=== PATIENT | female | born 1975 | race Caucasian/White ===

== ENCOUNTER 2019-07-21 07:25 | Outpatient (CLI) | payer OTHER, SELFPAY ==
--- NOTE | ~2019-07-21 | MM_ITS ---
EXAMINATION: MM screening yrn BI w jhon HISTORY: Screening mammogram TECHNIQUE: Craniocaudal and mediolateral oblique 3-D tomosynthesis images were obtained and synthetic 2-D images were generated. CAD analysis was submitted and interpreted. COMPARISON: 07/09/2018 diagnostic left digital mammogram To, 07/05/2017, 07/02/2016 bilateral digital screening mammogram examinations BREAST PARENCHYMAL COMPOSITION: There are scattered areas of fibroglandular density. FINDINGS: 3 mm and 6 lumbar circumscribed opacities in the upper outer quadrant of left breast, likel y benign intramammary lymph nodes. There is no evidence of suspicious mass, calcification, or archite ctural distortion to suggest malignancy in either breast. There has been no suspicious interval ellis e. IMPRESSION: 1. No mammographic evidence of malignancy. 2. Recommend routine screening mammography in one year. BI-RADS Category 2: Benign finding(s). Reviewed, dictated and finalized at location A. 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
== END 2019-07-21 07:26 | disposition home or self-care (01) ==
LOC: ANHIMG 07:27
PROVIDERS: PCP Obstetrics & Gynecology; Visit Provider Obstetrics & Gynecology
DX: Z12.31 Encounter for screening mammogram for malignant neoplasm of breast (principal)
CPT/HCPCS: 77063; 77067

== ENCOUNTER 2020-01-01 06:53 | Outpatient (CLI) | payer OTHER, SELFPAY ==
--- NOTE | ~2020-01-01 | US_ITS ---
EXAMINATION: US thyroid DATE: 01/01/2020 07:34 INDICATION: Nontoxic single thyroid nodule. TECHNIQUE: Multiple ultrasound images of the thyroid were obtained. COMPARISON: Thyroid ultrasound 01/06/2019, 05/23/2015 FINDINGS: The right thyroid lobe measures 3.6 x 2.0 x 1.5 cm. The left thyroid lobe measures 3.4 x 1.6 x 1.5 c m. In the left thyroid lobe, there is a 3 mm nodule. IMPRESSION: 1. Stable small thyroid nodule, likely not clinically significant. No follow-up is needed. Reviewed, dictated and finalized at location B.
--- NOTE | ~2020-01-01 | CT_ITS ---
EXAMINATION: CT sinus wo con DATE: 01/01/2020 07:24 INDICATION: Chronic congestion. Chronic sinusitis. TECHNIQUE: Computed tomography (CT) of the paranasal sinuses was performed without contrast. Iterativ e reconstruction technique was employed. Exam dose: 271.75 mGy-cm total exam DLP. COMPARISON: 05/29/2011 CT sinuses FINDINGS: There is minimal rightward bowing of the nasal septum. There is intralamellar cell of the right middle nasal turbinate and bilateral middle nasal turbinate serafin bullosa. The intravenous turbinates are moderately prominent in size, symmetric. The ostiomeatal units are patent. There is no mucoperiosteal thickening, air-fluid level, soft tissue opacity other significant abnorma lity of the paranasal sinuses. The mastoid air cells are normally developed and aerated. The left frontal sinus is very small. The right frontal sinus is not developed. IMPRESSION: Minimal rightward bowing of nasal septum Interlamellar cell of right middle nasal turbinate and bilateral middle nasal turbinate serafin bullos a Normal ostiomeatal units No evidence of sinusitis Mastoid air cells are normal Reviewed, dictated and finalized at Location A. Reviewed, dictated and finalized at location A. IMPRESSION: Minimal rightward bowing of nasal septum Interlamellar cell of right middle nasal turbinate and bilateral middle nasal t urbinate serafin bullosa Normal ostiomeatal units No evidence of sinusitis Mastoid air cells are normal
== END 2020-01-01 06:54 | disposition home or self-care (01) ==
PROVIDERS: PCP Internal Medicine; Visit Provider Otolaryngology
DX: J32.9 Chronic sinusitis, unspecified (principal); J34.2 Deviated nasal septum; E04.1 Nontoxic single thyroid nodule
CPT/HCPCS: 70486; 76536

== ENCOUNTER 2020-06-24 02:02 | Day surgery (SDC) | payer OTHER, SELFPAY ==
[2020-06-16 12:26] VITALS: BMI 29.9
[2020-06-24] MEDS: LACTATED RINGERS 1,000 ML 150 ML IV CONT (09:35)
[2020-06-24 09:37] VITALS: BP 110/73; PULSE 70; RESP 16; TEMP 36.1; O2SAT 100
--- NOTE | 2020-06-24 09:46 | WPDANESEPPF ---
Anes - Initial Pre Proc Eval Procedure: Operation Date: 06/24/20 10:30 Proposed Procedures p Esophagogastroduodenoscopy - Nish Dockery MD Date/Time: 06/24/20 09:46 Surgeon: Nish Dockery MD Pre Op Diagnosis: Laryngopharyngeal Reflux Patient Data Age: 44 Gender: F Height: 5 ft 6 in Weight: 84.5 kg Last Vital Signs Temp 97 F L 06/24/20 09:37 Pulse 70 06/24/20 09:37 Resp 16 06/24/20 09:37 BP 110/73 06/24/20 09:37 Pulse Ox 100 06/24/20 09:37 Allergies Allergy/AdvReac Type Severity Reaction Status Date / Time cephalexin Allergy Intermediate Rash Verified 06/24/20 09:36 bacitracin Allergy Unknown Rash Verified 06/24/20 09:36 lidocaine Allergy Unknown Rash Verified 06/24/20 09:36 neomycin Allergy Unknown IRRITATION Verified 06/24/20 09:36 methylisothiazolinone Allergy Swelling Verified 06/24/20 09:36 Home Medications Medication Instructions Recorded Confirmed Type azelastine 137 mcg (0.1 %) nasal 137 mcg NASAL Q12H 12/30/19 06/16/20 History spray aerosol cetirizine 10 mg tablet 10 mg PO DAILY 12/30/19 06/16/20 History montelukast 10 mg tablet 10 mg PO DAILY 12/30/19 06/16/20 History omeprazole 40 mg PO DAILY 06/16/20 06/16/20 History Patient hx anesthesia problems: none Family hx anesthesia problems: none PMFSH Past Medical History Medical History (Updated 12/30/19 @ 07:30 by Vaibhav Becerril APRN) Dyslipidemia Eczema H/O René thyroiditis Irregular periods Muscle fatigue Restless legs syndrome Thyroid nodule Surgical History Surgical History History of tubal ligation [place] teeth extracted Family History Family History Mother Family history of malignant neoplasm of breast in first degree relative Other Cerebrovascular accident Diabetes mellitus Family history of arthritis Family history of cardiovascular disease Family history of chronic obstructive pulmonary disease Family history of congestive heart failure Family history of glaucoma Family history of hearing loss Family history of heart disease in male family member before age 55 Family history of malignant neoplasm Family history of osteoporosis Hypertension Social History Social History Smoking status: Never smoker Alcohol intake: never Substance use: current Substance use type: does not use Living arrangements: with family Spiritual care concerns: No Anes - Eval Final PreProcedure Day of Procedure 06/24/20 09:46 Patient weight: overweight Heart: regular rate and rhythm Lungs: clear to auscultation Airway: Mallampati scale class II Neurological: alert and oriented Last oral intake: >/= 8 hours ASA classification: II Emergent: no Anesthetic plan: proceed Anesthesia type and monitoring: general GIVS and standard monitoring Informed Consent: The patient's anesthetic plan and its attendant risks and benefits were discussed with the patient/family/POA. Questions were solicited and answers provided to the satisfaction of the patient/family/POA.
--- NOTE | 2020-06-24 09:51 | WPDGICN ---
Assessment and Plan Assessment and plan (1) Sinusitis: Code(s): J32.9 - Chronic sinusitis, unspecified Status: Acute (2) Cough: Code(s): R05 - Cough Status: Acute Assessment and Plan: Patient presents with chronic cough. She has been found to have sinusitis. Question has been raised that this could represent laryngeal pharyngeal reflux. However patient has no heartburn and has had a poor response to a 2 month trial of omeprazole 40 mg p.o. daily. Plan is for EGD to assess for any signs of acid reflux. Alternatively if this is -24 hour esophageal pH testing while not taking acid suppression may also help exclude or confirm acid reflux disease. Further recommendations may be given after endoscopy. GI Consult Note Consult date/time: 06/24/20 09:51 HPI: Jessica Zaman is a 44 year old female Presents to try to exclude acid reflux disease. Patient gives a long history of for many years of sinus problems. She has had sinus drainage. She complains of a cough. She complains of change in her voice. She initially saw an digester hand with no improvement. Recently saw ENT service to 5 identified pharyngitis. It was felt she may have laryngeal pharyngeal reflux. Patient has been treated with omeprazole 40 mg p.o. daily for more than 2 months with no change in symptoms. Patient denies any heartburn. She denies any dysphagia. She denies any bleeding. Weight appetite bowel movements all have been normal. Her family history is noncontributory. Today she presents for an EGD to assess for any possible evidence for acid reflux disease. Review of Systems Review of Systems: All systems reviewed & are unremarkable except as noted in HPI and below [facility] Past Medical History Medical History (Updated 06/24/20 @ 09:54 by Nish Dockery MD) Dyslipidemia Eczema H/O René thyroiditis Irregular periods Muscle fatigue Restless legs syndrome Thyroid nodule Surgical History Surgical History History of tubal ligation [place] teeth extracted Family History Family History Mother Family history of malignant neoplasm of breast in first degree relative Other Cerebrovascular accident Diabetes mellitus Family history of arthritis Family history of cardiovascular disease Family history of chronic obstructive pulmonary disease Family history of congestive heart failure Family history of glaucoma Family history of hearing loss Family history of heart disease in male family member before age 55 Family history of malignant neoplasm Family history of osteoporosis Hypertension Social History Social History Smoking status: Never smoker Alcohol intake: never Substance use: current Substance use type: does not use Living arrangements: with family Spiritual care concerns: No Meds Home Medications and Allergies Home Medications Medication Instructions Recorded Confirmed Type azelastine 137 mcg (0.1 %) nasal 137 mcg NASAL Q12H 12/30/19 06/16/20 History spray aerosol cetirizine 10 mg tablet 10 mg PO DAILY 12/30/19 06/16/20 History montelukast 10 mg tablet 10 mg PO DAILY 12/30/19 06/16/20 History omeprazole 40 mg PO DAILY 06/16/20 06/16/20 History Allergies Allergy/AdvReac Type Severity Reaction Status Date / Time cephalexin Allergy Intermediate Rash Verified 06/24/20 09:36 bacitracin Allergy Unknown Rash Verified 06/24/20 09:36 lidocaine Allergy Unknown Rash Verified 06/24/20 09:36 neomycin Allergy Unknown IRRITATION Verified 06/24/20 09:36 methylisothiazolinone Allergy Swelling Verified 06/24/20 09:36 Vital Signs Vital Signs - 24 hr 06/24/20 09:37 Temperature 97 F L Pulse Rate 70 Respiratory Rate 16 Blood Pressure 110/73 Pulse Oximetry 100 Exam Narrative: Exam Narrative: Physi
[2020-06-24 10:15] VITALS: BP 117/77; PULSE 70; RESP 22; O2SAT 100
[2020-06-24 10:25] VITALS: BP 115/69; PULSE 67; RESP 18; O2SAT 100
[2020-06-24 10:35] VITALS: BP 114/67; PULSE 65; RESP 16; O2SAT 100
== END 2020-06-24 10:51 | disposition home or self-care (01) ==
PROVIDERS: Family Provider Obstetrics & Gynecology; PCP Internal Medicine; Referring Provider Otolaryngology; Visit Provider Internal Medicine Gastroenterology
PROC: 0DJ08ZZ Inspection of Upper Intestinal Tract, Via Natural or Artificial Opening Endoscopic (ICD-10-PCS; CPT 43235; principal; 2020-06-24 10:30)
DX: R05 Cough (principal); J32.9 Chronic sinusitis, unspecified; E78.5 Hyperlipidemia, unspecified; G25.81 Restless legs syndrome
CPT/HCPCS: 43239; 87081; J2704; J7120

== ENCOUNTER 2020-07-26 07:14 | Outpatient (CLI) | payer OTHER, SELFPAY ==
--- NOTE | ~2020-07-26 | MM_ITS ---
EXAMINATION: MM screening yrn BI w jhon HISTORY: Screening mammogram TECHNIQUE: Craniocaudal and mediolateral oblique 3-D tomosynthesis images were obtained and synthetic 2-D images were generated. CAD analysis was submitted and interpreted. COMPARISON: 08/07/2019 bilateral digital screening mammogram 07/17/2018 diagnostic left digital mammogram 07/08/2018, 07/05/2017, 07/02/2016 bilateral digital screening mammogram examinations BREAST PARENCHYMAL COMPOSITION: There are scattered areas of fibroglandular density. FINDINGS: There is no evidence of suspicious mass, calcification, or architectural distortion to sugg est malignancy in either breast. There has been no suspicious interval change. IMPRESSION: 1. No mammographic evidence of malignancy. 2. Recommend routine screening mammography in one year. BI-RADS Category 1: Negative Reviewed, dictated and finalized at location A. 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
== END 2020-07-26 07:15 | disposition home or self-care (01) ==
LOC: ANHIMG 07:16
PROVIDERS: PCP Internal Medicine; Visit Provider Obstetrics & Gynecology
DX: Z12.31 Encounter for screening mammogram for malignant neoplasm of breast (principal)
CPT/HCPCS: 77063; 77067

== ENCOUNTER 2020-12-13 07:26 | Outpatient (CLI) | payer OTHER, SELFPAY ==
--- NOTE | ~2020-12-13 | MR_ITS ---
EXAMINATION: MR femur LT wo con DATE: 12/13/2020 09:41 INDICATION: Left leg pain TECHNIQUE: Magnetic resonance imaging (MRI) of the left femur/thigh was performed without intravenous contrast. Sequences included axial, sagittal and coronal T1-weighted FSE and fluid sensitive FSE STI R. The contralateral right thigh is included on the coronal images. COMPARISON: None. FINDINGS: There is a complete avulsion and 3 cm distal retraction of the biceps femoris tendon from the left is chial tuberosity origin. There is both feathery intramuscular as well as epimysial edema along the pr oximal 20 cm of the semitendinosus muscle belly with combination of partial avulsion of the anterior footplate at the ischial tuberosity as well as an additional partial tear extending more distally vamsi ng the myotendinous junction involving the more posterior portion of the muscle belly. Mild tendinopa thy without discrete tear at the left ischial tuberosity origin of the semimembranosus tendon. Remain lexie of the musculature in the left thigh appears normal in bulk and signal and symmetric with the con tralateral right thigh. Bilateral hip joint spaces appear normal with no joint effusions. Normal bone marrow signal throughout. No left knee joint effusion. The uterus is not identified and has likely b een surgically resected. Bladder is normal. No evident bilateral inguinal or lower pelvic lymphadenop athy. IMPRESSION: 1. Proximal hamstring tendon injury with complete left ischial tuberosity avulsion of the proximal bi ceps femoris tendon and partial avulsion of the proximal semitendinosus with more distal partial tear along the proximal myotendinous junction. Reviewed, dictated and finalized at location A. IMPRESSION: 1. Proximal hamstring tendon injury with complete left ischial tuberosity avuls ion of the proximal biceps femoris tendon and partial avulsion of the proximal semitendinosus with more distal partial tear along the proximal myotendinous ju nction.
== END 2020-12-13 07:27 | disposition home or self-care (01) ==
LOC: ANHIMG 07:32
PROVIDERS: PCP Internal Medicine; Visit Provider Nurse Practitioner
DX: M79.605 Pain in left leg (principal)
CPT/HCPCS: 73721

== ENCOUNTER 2021-05-08 09:24 | Outpatient (CLI) | payer OTHER, SELFPAY ==
--- NOTE | ~2021-05-08 | XR_ITS ---
XR knee RT min 4V 05/08/2021 09:44 Indication: Right knee pain Procedure: 5 views right knee Comparison: 10/25/2017 Findings: No fracture, subluxation or dislocation. There is patellofemoral compartment osteoarthritis , most prominent in the lateral facet. No significant joint effusion. No focal soft tissue abnormalit y. No foreign bodies. Impression: 1: Patellofemoral compartment osteoarthritis. Reviewed, dictated and finalized at location A. 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
== END 2021-05-08 09:25 | disposition home or self-care (01) ==
LOC: CHSIMG 09:26
PROVIDERS: PCP Internal Medicine; Visit Provider Orthopaedic Surgery
DX: M25.561 Pain in right knee (principal)
CPT/HCPCS: 73564

== ENCOUNTER 2021-06-13 00:19 | Day surgery (SDC) | payer OTHER, SELFPAY ==
[2021-05-31 15:03] VITALS: BMI 31.4
[2021-06-13 06:33] VITALS: BP 128/86; PULSE 81; RESP 18; TEMP 36.1; O2SAT 99
[2021-06-13] MEDS: LACTATED RINGERS 1,000 ML 150 ML IV CONT (06:47)
--- NOTE | 2021-06-13 07:51 | WPDANESEPPF ---
Anes - Initial Pre Proc Eval Procedure: Operation Date: 06/13/21 08:00 Proposed Procedures p Screening Colonoscopy - Tahir Marrero MD Date/Time: 06/13/21 07:51 Surgeon: Tahir Marrero MD Pre Op Diagnosis: neoplasm screening Patient Data Age: 45 Gender: F Height: 1.68 m Weight: 87.9 kg Last Vital Signs Temp 97.0 F L 06/13/21 06:33 Pulse 81 06/13/21 06:33 Resp 18 06/13/21 06:33 BP 128/86 06/13/21 06:33 Pulse Ox 99 06/13/21 06:33 Allergies Allergy/AdvReac Type Severity Reaction Status Date / Time cephalexin Allergy Intermediate Rash Verified 06/13/21 06:31 methylisothiazolinone Allergy Intermediate Swelling Verified 06/13/21 06:31 bacitracin Allergy Unknown Rash Verified 06/13/21 06:31 lidocaine Allergy Unknown Rash Verified 06/13/21 06:31 neomycin Allergy Unknown IRRITATION Verified 06/13/21 06:31 Home Medications Medication Instructions Recorded Confirmed Type azelastine 137 mcg (0.1 %) nasal 137 mcg NASAL Q12H 12/30/19 06/13/21 History spray aerosol cetirizine 10 mg tablet 10 mg PO DAILY 12/30/19 06/13/21 History diclofenac sodium 100 mg 100 mg PO DAILY #60 tablet 12/08/20 06/13/21 Rx tablet,extended release 24 hr Patient hx anesthesia problems: none Family hx anesthesia problems: none Results Review: All pre-operative results and documents have been reviewed as part of the pre-operative evaluation. [facility] Past Medical History Medical History (Updated 05/08/21 @ 11:44 by Guilherme Rosado MD) Arthritis Chondromalacia of right patellofemoral joint Degenerative arthritis of knee, bilateral Dyslipidemia Eczema H/O René thyroiditis Irregular periods Left proximal hamstring tendon rupture Light headedness Muscle fatigue Patellofemoral arthralgia of both knees Plantar fasciitis Restless legs syndrome Thyroid nodule Vision changes Surgical History Surgical History History of tubal ligation [place] teeth extracted Family History Family History Mother Family history of malignant neoplasm of breast in first degree relative Other Cerebrovascular accident Diabetes mellitus Family history of arthritis Family history of cardiovascular disease Family history of chronic obstructive pulmonary disease Family history of congestive heart failure Family history of glaucoma Family history of hearing loss Family history of heart disease in male family member before age 55 Family history of malignant neoplasm Family history of osteoporosis Hypertension Social History Social History Alcohol intake: never Alcohol use details: socially/occasionally Substance use: current Substance use type: does not use Living arrangements: with family Spiritual care concerns: No Anes - Eval Final PreProcedure Day of Procedure 06/13/21 07:51 Patient weight: obese Heart: regular rate and rhythm Lungs: clear to auscultation Airway: Mallampati scale class II Neurological: alert and oriented Last oral intake: >/= 8 hours ASA classification: II Emergent: no Anesthetic plan: proceed Anesthesia type and monitoring: general GIVS and standard monitoring Results Review: All pre-operative results and documents have been reviewed as part of the pre-operative evaluation. Informed Consent: The patient's anesthetic plan and its attendant risks and benefits were discussed with the patient/family/POA. Questions were solicited and answers provided to the satisfaction of the patient/family/POA.
--- NOTE | 2021-06-13 07:53 | PM.HPGS ---
History of Present Illness History of Present Illness Consent: Risks, benefits, and alternatives have been discussed and questions answered. Patient agrees to proceed with procedure. Chief complaint: neoplasm screening Narrative: Jessica Zaman is a 45 year old female here for first screening colonoscopy Review of Systems Constitutional: Constitutional: Denies headache(s) and Denies weakness Eyes: Eyes: Denies blurry vision ENT: Reports Normal hearing present, Denies headache(s) and Denies neck pain Cardiovascular: Cardiovascular: Denies chest pain and Denies dyspnea Respiratory: Respiratory: Denies dyspnea Gastrointestinal: Gastrointestinal: Reports no additional gastrointestinal complaints Genitourinary: Genitourinary: Denies dysuria Musculoskeletal: Musculoskeletal: Denies neck pain Integumentary/Breasts: Skin/Breast: Denies dry skin Neurologic: Reports Normal hearing present, Denies headache(s) and Denies weakness Psychiatric: Psychiatric: Denies anxiety Endocrine: Endocrine: Denies change in body appearance Hematologic/Lymphatic: Hematologic/Lymphatic: Denies easy bleeding Allergic/Immunologic: Allergic/Immunologic: Denies urticaria PMFSH Past Medical History Medical History (Updated 05/08/21 @ 11:44 by Guilherme Rosado MD) Arthritis Chondromalacia of right patellofemoral joint Degenerative arthritis of knee, bilateral Dyslipidemia Eczema H/O René thyroiditis Irregular periods Left proximal hamstring tendon rupture Light headedness Muscle fatigue Patellofemoral arthralgia of both knees Plantar fasciitis Restless legs syndrome Thyroid nodule Vision changes Surgical History Surgical History History of tubal ligation [place] teeth extracted Family History Family History Mother Family history of malignant neoplasm of breast in first degree relative Other Cerebrovascular accident Diabetes mellitus Family history of arthritis Family history of cardiovascular disease Family history of chronic obstructive pulmonary disease Family history of congestive heart failure Family history of glaucoma Family history of hearing loss Family history of heart disease in male family member before age 55 Family history of malignant neoplasm Family history of osteoporosis Hypertension Social History Social History Alcohol intake: never Alcohol use details: socially/occasionally Substance use: current Substance use type: does not use Living arrangements: with family Spiritual care concerns: No Meds Home Medications and Allergies Home Medications Medication Instructions Recorded Confirmed Type azelastine 137 mcg (0.1 %) nasal 137 mcg NASAL Q12H 12/30/19 06/13/21 History spray aerosol cetirizine 10 mg tablet 10 mg PO DAILY 12/30/19 06/13/21 History diclofenac sodium 100 mg 100 mg PO DAILY #60 tablet 12/08/20 06/13/21 Rx tablet,extended release 24 hr Allergies Allergy/AdvReac Type Severity Reaction Status Date / Time cephalexin Allergy Intermediate Rash Verified 06/13/21 06:31 methylisothiazolinone Allergy Intermediate Swelling Verified 06/13/21 06:31 bacitracin Allergy Unknown Rash Verified 06/13/21 06:31 lidocaine Allergy Unknown Rash Verified 06/13/21 06:31 neomycin Allergy Unknown IRRITATION Verified 06/13/21 06:31 Vital Signs Vital Signs - 24 hr 06/13/21 06:33 Temperature 97.0 F L Pulse Rate 81 Respiratory Rate 18 Blood Pressure 128/86 Pulse Oximetry 99 Exam Const: General: comfortable and no acute distress HENMT: General nose exam: Normal nares present Eyes: General: appearance normal, both eyes and all related structures Neck: Neck: no JVD Resp: Auscultation: clear to auscultation bilaterally Cardio: Rate: regular rate Rhythm: regular rhythm GI: Inspe
--- NOTE | 2021-06-13 07:54 | WPDANESEPPF ---
Anes - Initial Pre Proc Eval Procedure: Operation Date: 06/13/21 08:00 Proposed Procedures p Screening Colonoscopy - Tahir Marrero MD Date/Time: 06/13/21 07:54 Surgeon: Tahir Marrero MD Pre Op Diagnosis: neoplasm screening Patient Data Age: 45 Gender: F Height: 1.68 m Weight: 87.9 kg Last Vital Signs Temp 97.0 F L 06/13/21 06:33 Pulse 81 06/13/21 06:33 Resp 18 06/13/21 06:33 BP 128/86 06/13/21 06:33 Pulse Ox 99 06/13/21 06:33 Allergies Allergy/AdvReac Type Severity Reaction Status Date / Time cephalexin Allergy Intermediate Rash Verified 06/13/21 06:31 methylisothiazolinone Allergy Intermediate Swelling Verified 06/13/21 06:31 bacitracin Allergy Unknown Rash Verified 06/13/21 06:31 lidocaine Allergy Unknown Rash Verified 06/13/21 06:31 neomycin Allergy Unknown IRRITATION Verified 06/13/21 06:31 Home Medications Medication Instructions Recorded Confirmed Type azelastine 137 mcg (0.1 %) nasal 137 mcg NASAL Q12H 12/30/19 06/13/21 History spray aerosol cetirizine 10 mg tablet 10 mg PO DAILY 12/30/19 06/13/21 History diclofenac sodium 100 mg 100 mg PO DAILY #60 tablet 12/08/20 06/13/21 Rx tablet,extended release 24 hr Patient hx anesthesia problems: none Family hx anesthesia problems: none Results Review: All pre-operative results and documents have been reviewed as part of the pre-operative evaluation. [facility] Past Medical History Medical History (Updated 05/08/21 @ 11:44 by Guilherme Rosado MD) Arthritis Chondromalacia of right patellofemoral joint Degenerative arthritis of knee, bilateral Dyslipidemia Eczema H/O René thyroiditis Irregular periods Left proximal hamstring tendon rupture Light headedness Muscle fatigue Patellofemoral arthralgia of both knees Plantar fasciitis Restless legs syndrome Thyroid nodule Vision changes Surgical History Surgical History History of tubal ligation [place] teeth extracted Family History Family History Mother Family history of malignant neoplasm of breast in first degree relative Other Cerebrovascular accident Diabetes mellitus Family history of arthritis Family history of cardiovascular disease Family history of chronic obstructive pulmonary disease Family history of congestive heart failure Family history of glaucoma Family history of hearing loss Family history of heart disease in male family member before age 55 Family history of malignant neoplasm Family history of osteoporosis Hypertension Social History Social History Alcohol intake: never Alcohol use details: socially/occasionally Substance use: current Substance use type: does not use Living arrangements: with family Spiritual care concerns: No Anes - Eval Final PreProcedure Day of Procedure 06/13/21 07:54 Patient weight: obese Heart: regular rate and rhythm Lungs: clear to auscultation Airway: Mallampati scale class II Neurological: alert and oriented Last oral intake: >/= 8 hours ASA classification: II Emergent: no Anesthetic plan: proceed Anesthesia type and monitoring: general GIVS and standard monitoring Results Review: All pre-operative results and documents have been reviewed as part of the pre-operative evaluation. Informed Consent: The patient's anesthetic plan and its attendant risks and benefits were discussed with the patient/family/POA. Questions were solicited and answers provided to the satisfaction of the patient/family/POA.
[2021-06-13 08:12] VITALS: BP 106/61; PULSE 73; RESP 21; O2SAT 96
[2021-06-13 08:22] VITALS: BP 116/73; PULSE 67; RESP 14; O2SAT 99
[2021-06-13 08:32] VITALS: BP 117/78; PULSE 63; RESP 11; O2SAT 99
== END 2021-06-13 08:41 | disposition home or self-care (01) ==
PROVIDERS: PCP Internal Medicine; Visit Provider Internal Medicine Gastroenterology
PROC: 0DJD8ZZ Inspection of Lower Intestinal Tract, Via Natural or Artificial Opening Endoscopic (ICD-10-PCS; CPT 45378; principal; 2021-06-13 08:00)
DX: Z12.11 Encounter for screening for malignant neoplasm of colon (principal); E66.9 Obesity, unspecified; Z68.31 Body mass index [BMI] 31.0-31.9, adult
CPT/HCPCS: 45378; J2704; J7120

== ENCOUNTER 2021-08-04 07:29 | Outpatient (CLI) | payer OTHER, SELFPAY ==
--- NOTE | ~2021-08-04 | MM_ITS ---
EXAMINATION: MM screening yrn BI w jhon HISTORY: Screening mammogram, family history of breast cancer in her mother. TECHNIQUE: Craniocaudal and mediolateral oblique 3-D tomosynthesis images were obtained and synthetic 2-D images were generated. CAD analysis was submitted and interpreted. COMPARISON: 07/26/2020, 07/21/2019, 07/17/2018 BREAST PARENCHYMAL COMPOSITION: There are scattered areas of fibroglandular density. FINDINGS: There is no suspicious mass, calcification, or architectural distortion to suggest malignan cy in either breast. There has been no suspicious interval change. IMPRESSION: 1. No mammographic evidence of malignancy. 2. Recommend routine screening mammography in one year. BI-RADS Category 1: Negative Reviewed, dictated and finalized at location A.
== END 2021-08-04 07:30 | disposition home or self-care (01) ==
LOC: ANHIMG 07:33
PROVIDERS: PCP Internal Medicine; Visit Provider Obstetrics & Gynecology
DX: Z12.31 Encounter for screening mammogram for malignant neoplasm of breast (principal)
CPT/HCPCS: 77063; 77067

== ENCOUNTER 2021-11-29 08:52 | Outpatient (CLI) | payer OTHER, SELFPAY ==
--- NOTE | 2021-11-29 09:12 | EST_ITS ---
Patient Info Name: Jessica Zaman Age: 45 years : 1975 Gender: Female Ht: 66 in Wt: 196 lbs BSA: 2.06 m2 HR: 64 bpm BP: 117 / 73 mmHg Heart Rhythm: Sinus Rhythm Technical Quality: Good Exam Date: 11/29/2021 9:27 AM Exam Location: [facility] Pulmonary Patient Status: Outpatient Admit Date: 11/29/2021 Staff Ordering Physician: George Mccain DO Inspector Multifocal Lens: Jesenia Hansen RDCS Attending Provider: DR. TEAGUE Referring Physician: Adán SAM; Exam Type: CA stress echo Study Info Indications - fatigue Treadmill exercise stress echocardiogram is performed. Summary 1. 1. Negative Chip exercise stress test for ischemic ST changes by ECG criteria. 2. 2. Good functional capacity, achieving 10 METs of workload. 3. 3. Appropriate HR response to exercise. 4. 4. Appropriate HR recovery at 1 minute post exercise. 5. 5. Negative stress echocardiogram for ischemia by wall motion analysis. 6. 6. Patient informed of the above results. Stress Echo Findings Left Ventricle Appropriate increase in LV endocardial thickening with systole. Appropriate augmentation of contractility with systole. No wall motion abnormality. Left Ventricle Normal LV systolic function, no wall motion abnormality. Protocol: Chip Stress ECG Details Stage: REST Duration (min): 1 min : 37 sec Speed (mph): 0.0 Grade (%): 0 HR (bpm): 70 SBP (mmHg): 117 DBP (mmHg): 73 METS: --- Stage: REST Duration (min): 12 min : 50 sec Speed (mph): 0.0 Grade (%): 0 HR (bpm): 70 SBP (mmHg): 117 DBP (mmHg): 73 METS: --- Stage: STAGE 1 Duration (min): 1 min : 0 sec Speed (mph): 1.7 Grade (%): 10 HR (bpm): 97 SBP (mmHg): 117 DBP (mmHg): 73 METS: --- Stage: STAGE 1 Duration (min): 2 min : 0 sec Speed (mph): 1.7 Grade (%): 10 HR (bpm): 106 SBP (mmHg): 117 DBP (mmHg): 73 METS: --- Stage: STAGE 1 Duration (min): 3 min : 0 sec Speed (mph): 1.7 Grade (%): 10 HR (bpm): 108 SBP (mmHg): 141 DBP (mmHg): 71 METS: --- Stage: STAGE 2 Duration (min): 1 min : 0 sec Speed (mph): 2.5 Grade (%): 12 HR (bpm): 122 SBP (mmHg): 141 DBP (mmHg): 71 METS: --- Stage: STAGE 2 Duration (min): 2 min : 0 sec Speed (mph): 2.5 Grade (%): 12 HR (bpm): 132 SBP (mmHg): 156 DBP (mmHg): 68 METS: --- Stage: STAGE 2 Duration (min): 3 min : 0 sec Speed (mph): 2.5 Grade (%): 12 HR (bpm): 135 SBP (mmHg): 156 DBP (mmHg): 68 METS: --- Stage: STAGE 3 Duration (min): 1 min : 0 sec Speed (mph): 3.4 Grade (%): 14 HR (bpm): 141 SBP (mmHg): 166 DBP (mmHg): 67 METS: --- Stage: STAGE 3 Duration (min): 2 min : 0 sec Speed (mph): 3.4 Grade (%): 14 HR (bpm): 145 SBP (mmHg): 166 DBP (mmHg): 67 METS: --- Stage: STAGE 3 Duration (min): 3 min : 0 sec Speed (mph): 3.4 Grade (%): 14 HR (
== END 2021-11-29 08:53 | disposition home or self-care (01) ==
PROVIDERS: PCP Internal Medicine; Visit Provider Internal Medicine
DX: R53.83 Other fatigue (principal)
CPT/HCPCS: 93351

== ENCOUNTER 2022-03-12 08:27 | Outpatient (CLI) | payer OTHER, SELFPAY ==
--- NOTE | ~2022-03-12 | XR_ITS ---
XR knee LT min 4V 03/12/2022 09:00 Indication: Left knee pain Procedure: 4 views left knee Comparison: 10/25/2017 Findings: Mild osteoarthritis of the left knee. No fracture or traumatic malalignment. No significant joint effusion. No foreign bodies. Impression: 1: Mild osteoarthritis of the left knee. Reviewed, dictated and finalized at location B. Impression: 1: Mild osteoarthritis of the left knee.
--- NOTE | ~2022-03-12 | XR_ITS ---
EXAMINATION: XR knee RT min 4V DATE: 03/12/2022 09:00 INDICATION: Right knee pain TECHNIQUE: Four views of the right knee were obtained. COMPARISON: 05/08/2021 FINDINGS: Alignment is normal. No fracture or osteochondral lesion. There is tricompartmental osteoar thritis, mild in the medial and lateral compartments and severe in the lateral patellofemoral compart ment. There is a small knee joint effusion. Soft tissues are unremarkable. IMPRESSION: 1. Severe patellofemoral compartment osteoarthritis without significant change. Small joint effusion. Reviewed, dictated and finalized at location A.
== END 2022-03-12 08:28 | disposition home or self-care (01) ==
PROVIDERS: PCP Internal Medicine; Visit Provider Orthopaedic Surgery
DX: M25.562 Pain in left knee (principal); M25.561 Pain in right knee
CPT/HCPCS: 73564

== ENCOUNTER 2022-08-02 09:50 | Outpatient (CLI) | payer OTHER, SELFPAY ==
--- NOTE | ~2022-08-02 | US_ITS ---
EXAMINATION: US thyroid DATE: 08/02/2022 11:02 INDICATION: Abnormal thyroid function studies TECHNIQUE: Multiple ultrasound images of the thyroid were obtained. COMPARISON: 01/01/2020 FINDINGS: The right thyroid lobe measures 3.4 x 1.7 x 1.5 cm. The left thyroid lobe measures 3.6 x 1.4 x 1.3 c m. 6 mm wide than tall mixed solid and cystic nodule with smooth margins, isoechoic solid component and without echogenic foci in the inferior left thyroid (TI-RADS 2, not suspicious, no FNA recommende d). There is normal echotexture, echogenicity and vascular flow throughout the thyroid gland. IMPRESSION: 1. 6 mm TI-RADS 2 left thyroid nodule which is of no clinical significance requiring no biopsy or fur ther follow-up. Reviewed, dictated and finalized at location L. IMPRESSION: 1. 6 mm TI-RADS 2 left thyroid nodule which is of no clinical significance requ iring no biopsy or further follow-up.
== END 2022-08-02 09:51 | disposition home or self-care (01) ==
PROVIDERS: PCP Internal Medicine; Visit Provider Internal Medicine
DX: R94.6 Abnormal results of thyroid function studies (principal)
CPT/HCPCS: 76536

== ENCOUNTER 2022-09-18 07:48 | Outpatient (CLI) | payer OTHER, SELFPAY ==
--- NOTE | ~2022-09-18 | MM_ITS ---
EXAMINATION: MM screening yrn BI w jhon HISTORY: Screening mammogram, family history of breast cancer in her mother. TECHNIQUE: Craniocaudal and mediolateral oblique 3-D tomosynthesis images were obtained and synthetic 2-D images were generated. CAD analysis was submitted and interpreted. COMPARISON: 08/04/2021, 07/26/2020, 07/21/2019 BREAST PARENCHYMAL COMPOSITION:There are scattered areas of fibroglandular density. FINDINGS: Stable biopsy clip in the right breast. Stable benign-appearing lymph nodes of the outer ri ght breast. No suspicious mass, calcification, or architectural distortion are identified in either b reast to suggest malignancy. There has been no suspicious interval change. IMPRESSION: No mammographic evidence of malignancy. Recommend routine screening mammography in one year. BI-RADS Category 2: Benign finding(s). Reviewed, dictated and finalized at location .
== END 2022-09-18 07:49 | disposition home or self-care (01) ==
PROVIDERS: PCP Internal Medicine; Visit Provider Obstetrics & Gynecology
DX: Z12.31 Encounter for screening mammogram for malignant neoplasm of breast (principal)
CPT/HCPCS: 77063; 77067

== ENCOUNTER → 2023-04-22 07:02 | Outpatient (CLI) | payer OTHER, SELFPAY ==
--- NOTE | ~2023-04-22 | MR_ITS ---
MRI of the right knee Clinical history: Pain Technique: Coronal proton density and proton density-weighted images, sagittal proton-density and T2 fat-sat images, and axial proton-density fat-saturated images were acquired. Findings: Anterior and posterior cruciate ligaments are intact. Medial collateral ligament and the la teral collateral ligament complex are intact. Popliteus tendon is intact. Medial and lateral menisci are intact, without evidence of tear. There is probable focal high-grade chondromalacia at the medial aspect of the medial tibial plateau, with subchondral cystic change in this region. There is moderate chondral malacia the central aspect of the lateral tibial plateau. There is diffuse high-grade chondromalacia on both sides the patellofe moral compartment. There is patellofemoral compartment narrowing, with mild tricompartmental osteophy te formation. Extensor mechanism is intact. There is minimal joint effusion. No Chase's cyst. Possible 6 mm intra-a rticular loose body posterior to the PCL (sagittal image 15). Impression: Advanced degenerative change of the patellofemoral compartment. Mild to moderate degenerative change of the medial lateral compartments, as detailed above. Possible 6 mm intra-articular loose body, as above. Reviewed, dictated and finalized at location . 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 Mild to moderat e degenerative change of the medial lateral compartments, as detailed above. Possible 6 mm intra-articular loose body, as above.
== END ==
PROVIDERS: PCP Family Medicine; Visit Provider Orthopaedic Surgery
DX: M17.11 Unilateral primary osteoarthritis, right knee (principal)
CPT/HCPCS: 73721

== ENCOUNTER 2023-05-06 07:27 | Outpatient (CLI) | payer OTHER, SELFPAY ==
--- NOTE | ~2023-05-06 | XR_ITS ---
Left Knee Technique: AP, lateral, and sunrise views were obtained. Clinical History: Pain Findings: No fracture or dislocation is seen. Osseous alignment is anatomic. Joint spaces are preserv ed without degenerative or erosive change. Soft tissues are unremarkable. No joint effusion is seen. Impression: Unremarkable left knee radiographs. Reviewed, dictated and finalized at location . 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
--- NOTE | ~2023-05-06 | XR_ITS ---
Right Knee Technique: AP, lateral, and sunrise views were obtained. Clinical History: Pain Findings: No fracture or dislocation is seen. Osseous alignment is anatomic. Joint spaces are preserv ed without degenerative or erosive change. Soft tissues are unremarkable. No joint effusion is seen. Impression: Unremarkable right knee radiographs. Reviewed, dictated and finalized at location . S SKIMMER Impression: Unremarkable right knee radiographs.
== END 2023-05-06 07:28 | disposition home or self-care (01) ==
LOC: CHSIMG 07:30
PROVIDERS: PCP Family Medicine; Visit Provider Orthopaedic Surgery
DX: M25.561 Pain in right knee (principal); M25.562 Pain in left knee
CPT/HCPCS: 73564

== ENCOUNTER 2023-09-13 15:49 | Emergency (ER) | payer OTHER, SELFPAY ==
--- NOTE | ~2023-09-13 | XR_ITS ---
EXAMINATION: XR sternum min 2V DATE: 09/13/2023 16:35 INDICATION: Left sternal pain after being hit with a softball TECHNIQUE: Oblique PA and lateral views of the sternum were obtained. COMPARISON: 12/28/2007 FINDINGS: No fractures identified. No evident presternal or retrosternal soft tissue swelling. Visualized porti on of the lungs are clear. No pleural effusion or pneumothorax. Heart size is normal. Mild thoracic s pondylosis. IMPRESSION: 1. No acute osseous abnormality. Reviewed, dictated and finalized at location A.
[2023-09-13 15:55] VITALS: BP 128/76; PULSE 69; RESP 16; TEMP 36.8; O2SAT 100
--- NOTE | 2023-09-13 16:24 | ED.GENADULT ---
HPI - General Adult General Chief complaint: Unspecified Stated complaint: CHEST INJURY Time Seen by Provider: 09/13/23 16:03 Source: patient and RN notes reviewed Mode of arrival: ambulatory Limitations: no limitations History of Present Illness HPI narrative: Patient presents today stating that she was struck in the left chest by softball last night after it was thrown in her direction. She denies pain with deep breath or coughing, but does report some pain with movement and pressure to the area. She currently rates her pain at rest 2/10, which increases to 4/10 with movement. She takes diclofenac for pain. Denies shortness of breath or any additional symptoms. Related Data Home Medications Medication Instructions Recorded Confirmed cetirizine 10 mg tablet (Zyrtec) 10 mg PO DAILY 12/30/19 08/13/23 dupilumab [Dupixent Pen] subcut PRN 07/17/23 08/13/23 ciclopirox 1 % shampoo 5 ml topical 2XW 08/13/23 08/13/23 fluocinonide 0.05 % topical 1 applic topical BID 08/13/23 08/13/23 solution multivitamin with minerals 1 tablet PO DAILY 08/13/23 08/13/23 (Hair,Skin and Nails tablet) Allergies Allergy/AdvReac Type Severity Reaction Status Date / Time cephalexin Allergy Intermediate Rash Verified 09/13/23 16:08 methylisothiazolinone Allergy Intermediate Swelling Verified 09/13/23 16:08 methylchloroisothiazolinone Allergy Mild Rash Verified 09/13/23 16:08 propyl gallate Allergy Mild Rash Verified 09/13/23 16:08 bacitracin Allergy Unknown Rash Verified 09/13/23 16:08 neomycin Allergy Unknown IRRITATION Verified 09/13/23 16:08 2-hydroxyethyl Allergy Mild rash Uncoded 09/13/23 16:08 amerchol l101 Allergy Mild rash Uncoded 09/13/23 16:08 balsam of sigifredo Allergy Mild rash Uncoded 09/13/23 16:08 benzalkonium cholride Allergy Mild rash Uncoded 09/13/23 16:08 dodecyl gallate Allergy Mild Rash Uncoded 09/13/23 16:08 fragrance mix 2 Allergy Mild Rash Uncoded 09/13/23 16:08 kylah Allergy Mild Rash Uncoded 09/13/23 16:08 limonene Allergy Mild Rash Uncoded 09/13/23 16:08 lyral Allergy Mild Rash Uncoded 09/13/23 16:08 methylisothiazolinone Allergy Mild Rash Uncoded 09/13/23 16:08 octyl gallate Allergy Mild Rash Uncoded 09/13/23 16:08 phenyl mercuric acetate Allergy Mild Rash Uncoded 09/13/23 16:08 Review of Systems Review of Systems: CONSTITUTIONAL: Denies body aches, fever, chills, or sweats. EYES: Denies visual changes, redness, or discharge. ENT: Denies rhinorrhea, congestion, sore throat, or otalgia. CARDIOVASCULAR: Denies chest pain, palpitations, or edema. RESPIRATORY: Denies cough or dyspnea. GASTROINTESTINAL: Denies abdominal pain, nausea, vomiting, or diarrhea. GENITOURINARY: Denies dysuria or hematuria. SKIN: Denies rash, itching, or wounds. MUSCULOSKELETAL: Denies back pain, joint pain, or myalgia.+ chest wall pain NEUROLOGIC: Denies headache, numbness, tingling, or weakness. PSYCH: Denies depression or anxiety. 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 Degenerative arthritis of knee, bilateral Dyslipidemia Eczema H/O René thyroiditis Irregular periods Lateral epicondylitis of left elbow Left proximal hamstring tendon rupture Light headedness Muscle fatigue Myalgia Myalgia Patellofemoral arthralgia of both knees Plantar fasciitis Restless legs syndrome Right knee DJD Thyroid nodule Vision changes Surgical History Surgical History History of tubal ligation [place] teeth extracted Family History Family History Mother Family history of malignant neoplasm of breast in first degree relative Hypertension Grandparent Heart disease Cerebrovascular accident Skin cancer Other Diabetes mellitus Family history of arthritis F
== END 2023-09-13 17:18 | disposition home or self-care (01) ==
PROVIDERS: Emergency Provider Nurse Practitioner; PCP Family Medicine
DX: S20.212A Contusion of left front wall of thorax, initial encounter (principal); W21.07XA Struck by softball, initial encounter; M17.0 Bilateral primary osteoarthritis of knee; E78.5 Hyperlipidemia, unspecified; E06.3 Autoimmune thyroiditis
CPT/HCPCS: 71120; 99213; G0463

== ENCOUNTER 2023-12-24 07:02 | Outpatient (CLI) | payer OTHER, SELFPAY ==
--- NOTE | ~2023-12-24 | MM_ITS ---
EXAMINATION: MM screening yrn BI w jhon HISTORY: Screening TECHNIQUE: Craniocaudal and mediolateral oblique 3-D tomosynthesis images were obtained and synthetic 2-D images were generated. CAD analysis was submitted and interpreted. COMPARISON: Comparison to multiple prior studies sequentially, with oldest reviewed study dated 07/08. BREAST PARENCHYMAL COMPOSITION: Dense: The breasts are heterogeneously dense, which may obscure small masses FINDINGS: There is no evidence of suspicious mass, calcification, or architectural distortion to sugg est malignancy in either breast. There has been no suspicious interval change. IMPRESSION: 1. No mammographic evidence of malignancy. 2. Recommend routine screening mammography in one year. BI-RADS Category 1: Negative Reviewed, dictated and finalized at location B.
== END 2023-12-24 07:03 ==
LOC: MICIMG 07:03
PROVIDERS: PCP Family Medicine; Visit Provider Obstetrics & Gynecology
DX: Z12.31 Encounter for screening mammogram for malignant neoplasm of breast (principal)
CPT/HCPCS: 77063; 77067

== ENCOUNTER 2024-03-09 11:30 | Emergency (ER) | payer OTHER, SELFPAY ==
--- NOTE | ~2024-03-09 | XR_ITS ---
2 VIEWS STERNUM Ordering provider: Fay Murrieta NP History: . hit with softball 6 months ago, pain . Comparison: September 13, 2023 FINDINGS: BONES: No definite sternal fracture. JOINTS: Sternoclavicular joints is well maintained without dislocation. SOFT TISSUES: Normal. IMPRESSION: No definite acute osseous abnormality. Reviewed, dictated and finalized at location A.
[2024-03-09 11:35] VITALS: BP 116/84; PULSE 74; RESP 16; TEMP 36.7; O2SAT 98
[2024-03-09 11:42] VITALS: BP 116/84; PULSE 74; RESP 16; TEMP 36.7; O2SAT 98
[2024-03-09 11:54] LABS: EDSTREPNEGPOS1 Negative (Negative)
--- NOTE | 2024-03-09 12:04 | ED.URI ---
HPI - URI/Sore Throat General Chief Complaint: Upper Respiratory Infection Stated Complaint: Sore Throat Time Seen by Provider: 03/09/24 12:04 Source: patient Mode of arrival: ambulatory Limitations: no limitations History of Present Illness HPI Narrative: 48-year-old female presents with complaint of sore throat for 5 days. Sore throat is worse at night. Taking Tylenol to treat pain with no improvement. Patient takes allergy medications daily. Reports history of seasonal allergies. Sees an retail presentation specialist. Is supposed to start allergy shots. Reports she is always congested has postnasal drainage. No sinus pressure as or congestion at this time. Patient requesting strep test. Patient also reports tenderness to sternum. States she was seen here approximately 6 months ago after she was hit with softball. Does not have pain at rest, but on palpation is tender. All systems reviewed and negative except as noted above. Related Data Home Medications Medication Instructions Recorded Confirmed multivitamin with minerals 1 tablet PO DAILY 08/13/23 03/09/24 (Hair,Skin and Nails tablet) Zyzal 1 tab-cap PO DAILY 03/09/24 03/09/24 montelukast 10 mg tablet 10 mg PO DAILY 03/09/24 03/09/24 (Singulair) Allergies Allergy/AdvReac Type Severity Reaction Status Date / Time cephalexin Allergy Intermediate Rash Verified 03/09/24 11:38 methylisothiazolinone Allergy Intermediate Swelling Verified 03/09/24 11:38 methylchloroisothiazolinone Allergy Mild Rash Verified 03/09/24 11:38 propyl gallate Allergy Mild Rash Verified 03/09/24 11:38 bacitracin Allergy Unknown Rash Verified 03/09/24 11:38 neomycin Allergy Unknown IRRITATION Verified 03/09/24 11:38 2-hydroxyethyl Allergy Mild rash Uncoded 03/09/24 11:38 amerchol l101 Allergy Mild rash Uncoded 03/09/24 11:38 balsam of sigifredo Allergy Mild rash Uncoded 03/09/24 11:38 benzalkonium cholride Allergy Mild rash Uncoded 03/09/24 11:38 dodecyl gallate Allergy Mild Rash Uncoded 03/09/24 11:38 fragrance mix 2 Allergy Mild Rash Uncoded 03/09/24 11:38 kylah Allergy Mild Rash Uncoded 03/09/24 11:38 limonene Allergy Mild Rash Uncoded 03/09/24 11:38 lyral Allergy Mild Rash Uncoded 03/09/24 11:38 methylisothiazolinone Allergy Mild Rash Uncoded 03/09/24 11:38 octyl gallate Allergy Mild Rash Uncoded 03/09/24 11:38 phenyl mercuric acetate Allergy Mild Rash Uncoded 03/09/24 11:38 Review of Systems Review of Systems: CONSTITUTIONAL: Denies fever, chills, or sweats. Reports fatigue. EYES: Denies visual changes, redness, or discharge. ENT: Reports rhinorrhea, congestion, sore throat. Denies otalgia. CARDIOVASCULAR: Denies chest pain, palpitations, or edema. RESPIRATORY: Denies cough or dyspnea. GASTROINTESTINAL: Denies abdominal pain, nausea, vomiting, or diarrhea. GENITOURINARY: Denies dysuria or hematuria. SKIN: Denies rash or itching. MUSCULOSKELETAL: Denies back pain, joint pain, or myalgia. Reports pain to sternum. NEUROLOGIC: Denies headache, numbness, or weakness. PSYCHIATRIC: Denies anxiety or depression. All other systems reviewed are negative, except as documented in HPI. 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
== END 2024-03-09 13:09 | disposition home or self-care (01) ==
PROVIDERS: Emergency Provider Nurse Practitioner Family; PCP Family Medicine
DX: J01.90 Acute sinusitis, unspecified (principal); J02.9 Acute pharyngitis, unspecified; R07.2 Precordial pain; E78.5 Hyperlipidemia, unspecified; E06.3 Autoimmune thyroiditis; G25.81 Restless legs syndrome; M17.0 Bilateral primary osteoarthritis of knee; M22.42 Chondromalacia patellae, left knee; M22.41 Chondromalacia patellae, right knee
CPT/HCPCS: 71120; 87081; 87880; 99213; G0463

== ENCOUNTER 2024-12-31 07:09 | Outpatient (CLI) | payer OTHER, SELFPAY ==
--- NOTE | ~2024-12-31 | MM_ITS ---
EXAMINATION: MM screening yrn BI w jhon HISTORY: Screening TECHNIQUE: Craniocaudal and mediolateral oblique 3-D tomosynthesis images were obtained and synthetic 2-D images were generated. CAD analysis was submitted and interpreted. COMPARISON: Comparison to multiple prior studies sequentially, with oldest reviewed study dated 07/2019. BREAST PARENCHYMAL COMPOSITION: Dense: The breasts are heterogeneously dense, which may obscure small masses FINDINGS: There is no evidence of suspicious mass, calcification, or architectural distortion to sugg est malignancy in either breast. There has been no suspicious interval change. IMPRESSION: 1. No mammographic evidence of malignancy. 2. Recommend routine screening mammography in one year. BI-RADS Category 1: Negative Reviewed, dictated and finalized at location A.
== END 2024-12-31 07:10 | disposition home or self-care (01) ==
LOC: MICIMG 07:10
PROVIDERS: PCP Family Medicine; Visit Provider Obstetrics & Gynecology
DX: Z12.31 Encounter for screening mammogram for malignant neoplasm of breast (principal)
CPT/HCPCS: 77063; 77067

== ENCOUNTER 2025-03-31 07:36 | Outpatient (CLI) | payer OTHER, SELFPAY ==
--- NOTE | ~2025-03-31 | XR_ITS ---
EXAMINATION: XR hip RT 2V w AP pelvis DATE: 03/31/2025 07:55 INDICATION: Pain TECHNIQUE: Right hip and pelvis x-rays were obtained. COMPARISON: None. FINDINGS: No acute or aggressive bony or soft tissue process seen. Mild osteoarthritic appearing degenerative changes in both hips noted. IMPRESSION: 1. Mild degenerative changes. No gross acute or aggressive bony or soft tissue process seen. Consider correlation with MRI for optimal sensitivity with persisting hip pain refractory to conservative therapy. Reviewed, dictated and finalized at location A. OR INFRASTRUCTURE ARCHITECT IMPRESSION: 1. Mild degenerative changes. No gross acute or aggressive bony or soft tissue process seen. Consider correlation with MRI for optimal sensitivity with persis ting hip pain refractory to conservative therapy.
--- NOTE | ~2025-03-31 | XR_ITS ---
EXAMINATION: XR knee RT 3V DATE: 03/31/2025 07:55 INDICATION: Pain TECHNIQUE: Right knee x-rays were obtained. COMPARISON: None. FINDINGS: Moderately severe osteoarthritic degenerative changes at the patellofemoral joint with milder degenerative changes in the medial and lateral joint spaces. No acute or aggressive bony or soft tissue process seen. IMPRESSION: 1. Degenerative changes in the right knee with no focal acute or aggressive process. Reviewed, dictated and finalized at location A. 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 Degenerative changes in the right knee with no focal acute or aggressive pro cess.
== END 2025-03-31 07:37 | disposition home or self-care (01) ==
LOC: MICIMG 07:38
PROVIDERS: PCP Family Medicine; Visit Provider Family Medicine
DX: M16.11 Unilateral primary osteoarthritis, right hip (principal); M17.11 Unilateral primary osteoarthritis, right knee
CPT/HCPCS: 73502; 73562